=== PATIENT | female | born 1985 | race Caucasian/White ===

== ENCOUNTER → 2020-05-02 | Outpatient (CLI) | payer OTHER ==
--- NOTE | 2020-05-02 15:10 | REP ---
INDICATION: PAIN OF HAND, LATERALITY COMPARISON: None. TECHNIQUE: AP, lateral, bilateral oblique views right and left hand. FINDINGS: Osseous structures and joint spaces are relatively symmetric and age-appropriate. No overt osteoarthritic or inflammatory arthritic changes are appreciated. No periarticular loose bodies, erosive changes, or soft tissue swelling noted. No osteophytosis or periarticular sclerosis. No acute fracture or dislocation. IMPRESSION: Symmetric normal age-appropriate bilateral hand radiograph series. <Electronically signed by Ruben Cunningham > 05/02/20 [id number]
== END ==
LOC: M ADAMS 13:36
PROVIDERS: ATTEND Internal Medicine
DX: M79.643 Pain in unspecified hand (principal)

== ENCOUNTER → 2020-05-02 | Outpatient (REF) | payer OTHER ==
[2020-05-02 16:56] LABS: APPEARANCE, URINE CLEAR (CLEAR); BACTERIA, URINE AUTO NEGATIVE (NEGATIVE); BILIRUBIN, URINE AUTO NEGATIVE (NEGATIVE); BLOOD, URINE BLOOD NEGATIVE (NEGATIVE); COLOR, URINE YELLOW (YELLOW); GLUCOSE, URINE (UA) AUTO NEGATIVE (NEGATIVE); KETONE, URINE AUTO NEGATIVE (NEGATIVE); LEUKOCYTE ESTERASE, URINE AUTO NEGATIVE (NEGATIVE); MUCUS, URINE SMALL (NEGATIVE); NITRITE, URINE AUTO NEGATIVE (NEGATIVE); PROTEIN, URINE AUTO NEGATIVE (NEGATIVE); RBC, URINE AUTO 5 /HPF (0-3); SPECIFIC GRAVITY URINE AUTO 1.017 (1.002-1.035); SQUAMOUS EPITHELIAL CELL UR AU 4 /HPF (0-6); UROBILINOGEN, URINE AUTO 0.2 mg/dL (0.0-2.0); WBC, URINE AUTO 0 /HPF (0-3)
[2020-05-02 17:02] LABS: COMPLEMENT C3 93 MG/DL (90-180); COMPLEMENT C4 21 MG/DL (10-40)
[2020-05-02 17:18] LABS: HEPATITIS B SURFACE ANTIBODY POSITIVE (POSITIVE); TOTAL 25(OH) VITAMIN D 19.7 NG/ML (30.0-100.0)
[2020-05-02 17:29] LABS: HEPATITIS B SURFACE ANTIGEN NEGATIVE (NEGATIVE)
[2020-05-02 17:57] LABS: HEPATITIS C VIRUS ABY INDEX 0.2 INDEX (<0.8)
[2020-05-09 12:08] LABS: ANTI CENTROMERE ANTIBODY <0.2 AI (0.0-0.9); ANTI-HISTONE ANTIBODIES 0.4 Units (0.0-0.9); BETA-2 GLYCOPROTEIN I ABY IGA <9 (0-25); BETA-2 GLYCOPROTEIN I ABY IGG <9 (0-20); BETA-2 GLYCOPROTEIN I ABY IGM <9 (0-32); CARDIOLIPIN IGA ANTIBODY <9 APL U/mL (0-11); CARDIOLIPIN IGG ANTIBODY <9 GPL U/mL (0-14); CARDIOLIPIN IGM ANTIBODY <9 MPL U/mL (0-12); COMPLEMENT TOTAL (CH50) 46 U/mL (>41); HEPATITIS B CORE ANTIBODY IGG Negative (Negative); RNP ANTIBODY < 0.2 AI (0.0-0.9); SMITHS ANTIBODY < 0.2 AI (0.0-0.9)
== END ==
LOC: M SFHCRHEU 13:35 → M SFHCADAM 13:40
PROVIDERS: ATTEND Internal Medicine
DX: R53.82 Chronic fatigue, unspecified (principal); R76.8 Other specified abnormal immunological findings in serum; Z11.59 Encounter for screening for other viral diseases; M79.643 Pain in unspecified hand

== ENCOUNTER 2020-06-19 09:26 | Emergency (ER) | payer OTHER ==
[~2020-06-19] VITALS: Ht 162.6 cm; Wt 70.8 kg
[2020-06-19] MEDS ORDERED: NORE0.353 (09:39)
[2020-06-19] MEDS ORDERED: ADVA45AE (09:39)
[2020-06-19] MEDS ORDERED: VITA50005 (09:39)
[2020-06-19] MEDS ORDERED: D-AMPHETAMINE (09:39)
[2020-06-19] MEDS ORDERED: GI COCKTAIL 50ML BTL(HYOSCYAMINE/MAALOX/LIDOCAINE VISCOUS)(1:3:1) PO ONE (10:30)
[2020-06-19] MEDS ORDERED: PANTOPRAZOLE 40MG VIAL (C9113 PER 1) IV ONE (10:30)
[2020-06-19 10:32] LABS: BASO % 0.3 % (0.0-1.0); EOS # 0.1 10^3/uL (0.0-0.5); EOS % 2.1 % (0.0-3.0); HEMATOCRIT 41.2 % (36.0-47.0); LYMPH # 1.6 10^3/uL (1.5-5.0); LYMPH % 23.9 % (24.0-44.0); MEAN CORPUSCULAR HEMOGLOBIN 31.5 pg (27.0-33.0); MEAN CORPUSCULAR VOLUME 92.8 fl (80.0-96.0); MONO # 0.4 10^3/uL (0.0-0.8); MONO % 6.5 % (0.0-5.0); NEUTROPHILS # 4.5 10^3/uL (1.5-8.5); PLATELET COUNT, AUTOMATED 293 10^3/uL (150-450); RED BLOOD COUNT 4.44 10^6/uL (4.00-5.40); WHITE BLOOD COUNT 6.6 10^3/uL (4.0-10.0)
[2020-06-19 11:00] LABS: HCG, SERUM QUALITATIVE NEGATIVE (NEGATIVE)
[2020-06-19 11:03] LABS: ALBUMIN 4.5 GM/DL (3.2-5.2); ALT/SGPT 20 U/L (12-78); BILIRUBIN,DIRECT 0.2 MG/DL (0.0-0.2); BILIRUBIN,TOTAL 0.6 MG/DL (0.2-1.0); CK-MB VALUE MASS < 1.0 NG/ML (<3.6); CPK CREATINE PHOSPHOKINASE 67 U/L (26-192); LIPASE 58 U/L (73-393); MB/CK RELATIVE INDEX 1.49 (< OR =4); TOTAL PROTEIN 7.7 GM/DL (6.4-8.2); TROPONIN I < 0.02 NG/ML (< 0.10)
[2020-06-19] MEDS ORDERED: ISOVUE-370 76% 100ML VIAL As Ordered ONE (11:03)
--- NOTE | 2020-06-19 12:00 | REP ---
INDICATION: epigastric pain. COMPARISON: None. TECHNIQUE: Helical scanning was acquired and 4 mm axial images are re-formatted. Coronal and sagittal MPR images were generated and reviewed. The contrast enhancement dose is 100 mL of intravenous Isovue 370. FINDINGS: Digital preliminary industrial relations representative radiograph is unremarkable. Normal bowel gas pattern. The lung bases are clear on axial CT images. There is mild diffuse fatty infiltration of the liver. No focal hepatic lesion is seen. Spleen is normal in size homogeneous in texture. Normal adrenal glands are seen. No abnormality is noted in the pancreas. Gallbladder has a fundal septation which is normal variant intact otherwise. The kidneys enhance symmetrically and are morphologically intact. No retroperitoneal mass or adenopathy is seen. No abdominal wall defect is observed. Small and large bowel loops are normal in the upper abdomen. No evidence of free fluid is seen. Normal follicle cysts are seen in the ovaries. No uterine abnormality is observed. A normal appendix is seen along the right pelvic sidewall. No inflammatory changes are noted. No bony destructive lesion is appreciated. IMPRESSION: Mild diffuse fatty infiltration of the liver. Otherwise unremarkable CT study abdomen and pelvis. No acute abnormality noted. <Electronically signed by Red Husain > 06/19/20 [id number]
[2020-06-19 14:15] VITALS: BP 138/73
[2020-06-19] MEDS ORDERED: OMEP40CA97 PO (14:18)
[2020-06-19] MEDS ORDERED: SUCR1TA PO (14:18)
--- NOTE | 2020-06-20 08:47 | ECGEPIP ---
[facility] - ED Test Date: 2020-06-19 Pat Name: LARISSA COWAN Department: Room: - Gender: Female Validation Analyst: : [id number] Requested By: YEYO Menendez Order Number: [id number] Reading MD: Susan Cordoba Measurements Intervals [place] Rate: 85 P: 2 WY: 146 QRS: 30 QRSD: 90 T: 26 QT: 354 QTc: 423 Interpretive Statements SINUS RHYTHM NO PRIOR Electronically Signed on 06-20-2020 8:47:11 EST by Susan Cordoba
== END 2020-06-19 14:36 | disposition home or self-care (01) ==
LOC: M ED 09:26
DX: K92.1 Melena (principal); K21.9 Gastro-esophageal reflux disease without esophagitis; K29.70 Gastritis, unspecified, without bleeding; J45.909 Unspecified asthma, uncomplicated; F41.9 Anxiety disorder, unspecified; F32.9 Major depressive disorder, single episode, unspecified; Z79.899 Other long term (current) drug therapy; Z88.8 Allergy status to other drugs, medicaments and biological substances; Z91.018 Allergy to other foods; Z91.89 Other specified personal risk factors, not elsewhere classified
CPT/HCPCS: 74177; 80047; 80076; 82550; 82553; 83605; 83690; 84484; 84703; 85025; 86850; 86900; 86901; 93005; 96374; 99284; C9113; Q9967

== ENCOUNTER → 2020-08-02 | Outpatient (REF) | payer OTHER ==
[~2020-08-02] MED LIST: ADVA45AE; D-AMPHETAMINE; NORE0.353; OMEP40CA97 PO; SUCR1TA PO; VITA50005
== END ==
LOC: M SFHCRHEU 15:13
PROVIDERS: ATTEND Internal Medicine
DX: E55.9 Vitamin D deficiency, unspecified (principal)

== ENCOUNTER → 2020-10-05 | Outpatient (CLI) | payer OTHER ==
--- NOTE | 2020-10-05 14:50 | REP ---
INDICATION: SOB COMPARISON: None. TECHNIQUE: PA and lateral. FINDINGS: The mediastinum and cardiac silhouette are normal. The lung acuna are clear and without acute consolidation, effusion, or pneumothorax. The skeletal structures are intact and normal. IMPRESSION: No acute cardiopulmonary process. <Electronically signed by Ruben Cunningham > 10/05/20 [id number]
== END ==
LOC: M WUC 14:38
PROVIDERS: ATTEND Physician Assistant
DX: R06.02 Shortness of breath (principal)

== ENCOUNTER → 2020-12-01 | Outpatient (CLI) | payer OTHER ==
[~2020-12-01] MED LIST changes: +ERGO500029; +OMEP40CA4 PO; -OMEP40CA97 PO; -VITA50005
== END ==
LOC: M PLALAB 09:01
PROVIDERS: ATTEND Internal Medicine
DX: E55.9 Vitamin D deficiency, unspecified (principal)